=== PATIENT | male | born 1970 | race Caucasian/White ===

== ENCOUNTER 2016-12-20 16:45 | Emergency (ER) | payer OTHER ==
[2016-12-20 17:00] VITALS: BP 122/86; PULSE 89; RESP 16; TEMP 99.1; O2SAT 95
--- NOTE | 2016-12-20 17:24 | UCPHY ---
H & P Patient Type: Established Chief Complaint Nursing Narrative: ST x 2-3 days ago,cough-3-4 days dry congested cough. Fever last noc 100.5 Time Seen by Provider: 12/20/16 17:17 HPI/ROS: CHIEF COMPLAINT: Cough, sore throat HISTORY OF PRESENT ILLNESS: Patient is a 46-year-old man who comes to the Urgent Care requesting treatment for bronchitis. His cough is nonproductive. He states that he has had bronchitis or pneumonia every year since moving to [place]. This started 3 days ago. He has had low-grade fevers. He complains of mild restricted breathing. He has used a home albuterol inhaler with significant improvement. He did have some sinus congestion initially but it is now resolved. Also had a sore throat yesterday but it is now resolved. REVIEW OF SYSTEMS: Constitutional: denies: chills, fever, recent illness, recent injury EENTM: See HPI Respiratory: denies: cough, shortness of breath Cardiac: denies: chest pain, irregular heart rate, lightheadedness, palpitations Gastrointestinal/Abdominal: denies: abdominal pain, diarrhea, nausea, vomiting, blood streaked stools Genitourinary: denies: dysuria, frequency, hematuria, pain Musculoskeletal: denies: joint pain, muscle pain Skin: denies: lesions, rash, jaundice, bruising Neurological: denies: headache, numbness, paresthesia, tingling, dizziness, weakness Hematologic/Lymphatic: denies: blood clots, easy bleeding, easy bruising Immunologic/allergic: denies: HIV/AIDS, transplant EXAM: GENERAL: Well-appearing, well-nourished and in no acute distress. HEAD: Atraumatic, normocephalic. EYES: Pupils equal round and reactive to light, extraocular movements intact, sclera anicteric, conjunctiva are normal. ENT: TMs normal, nares Congested, oropharynx clear without exudates. Moist mucous membranes. NECK: Normal range of motion, supple without lymphadenopathy or JVD. LUNGS: Breath sounds clear to auscultation bilaterally and equal. No wheezes rales or rhonchi. HEART: Regular rate and rhythm without murmurs, rubs or gallops. ABDOMEN: Soft, nontender, normoactive bowel sounds. No guarding, no rebound. No masses appreciated. BACK: No CVA tenderness, no spinal tenderness, step-offs or deformities EXTREMITIES: Normal range of motion, no pitting or edema. No clubbing or cyanosis. NEUROLOGICAL: Cranial nerves II through XII grossly intact. Normal speech, normal gait. 5/5 strength, normal movement in all extremities, normal sensation PSYCH: Normal mood, normal affect. SKIN: Warm, dry, normal turgor, no visible rashes or lesions. Source: Patient Exam Limitations: No limitations - Personal History Tetanus Vaccine Date: 2010 - Medical/Surgical History Hx Asthma: No Hx Chronic Respiratory Disease: No Hx Diabetes: No Hx Cardiac Disease: No Hx Renal Disease: No Hx Cirrhosis: No Hx Alcoholism: No Hx HIV/AIDS: No Hx Splenectomy or Spleen Trauma: No Other PMH: RIGHT SHOULDER SURG. Med hx-Htn - Family History Significant Family History: No pertinent family hx - Social History Smoking Status: Never smoked Alcohol Use: Sober Drug Use: None Constitutional: Initial Vital Signs Temperature (C) 37.3 C 12/20/16 16:56 Heart Rate 89 12/20/16 16:56 Respiratory Rate 16 12/20/16 16:56 Blood Pressure 122/86 H 12/20/16 16:56 O2 Sat (%) 95 12/20/16 16:56 O2 Delivery Mode Room Air Allergies/Adverse Reactions: No Known Allergies Allergy (Verified 12/20/16 16:54) Home Medications: Medication Instructions Recorded Albuterol [Proventil Neb] 2.5 mg IH Q4 PRN #20 deyvial 09/04/14 Flonase Nasal [place] 04/17/16 AZITHROMYCIN [Z-PACK] 250 mg PO DAILY #6 tab 12/20/16 Albuterol [Proventil Neb] 3 ml IH QID PRN #0 deyvial 12/20/16 Hydrochlorothiazide 12/20/16 Medical Decision Making ED Course/Re-evaluation: Patient has symptoms consistent with bronchitis. He is requesting azithromycin. Treat him with a course. He is happy with this plan declines further workup or testing. His breath sounds are clear on exam his oxygen saturation is 96% on room air. Differential Diagnosis: Partial list of the Differential diagnosis considered include but were not limited to; bronchitis, pneumonia, pharyngitis, upper respiratory tract infection and although unlikely based on the history and physical exam, I also considered sepsis, abscess. I discussed these differential diagnoses and the plan with the patient as well as the usual and expected course. The patient understands that the diagnosis is provisional and that in medicine we are not always correct and that further workup is often warranted. Usual and customary warnings were given. All of the patient's questions were answered. The patient was instructed to return to the emergency department should the symptoms at all worsen or return, otherwise to followup with the physician as we discussed. Departure - Departure Disposition: Home, Routine, Self-Care Clinical Impression: Bronchitis Condition: Fair Instructions: Acute Bronchitis (ED) Referrals: Doc Gonzalez MD [Primary Care Provider] - As per Instructions Prescriptions: Albuterol [Proventil Neb] 3 ml IH QID PRN #0 deyvial PRN Reason: Wheezing AZITHROMYCIN [Z-PACK] 250 mg PO DAILY #6 tab - PQRS PQRS Measurement: Not applicable
== END 2016-12-20 17:52 | disposition home or self-care (01) ==
LOC: CED 16:45
DX: J20.9 Acute bronchitis, unspecified (principal)
CPT/HCPCS: G0463-PO

== ENCOUNTER → 2016-12-25 | Outpatient (CLI) | payer OTHER | LOC: CIMAGING 11:50 | PROVIDERS: ATTEND Family Medicine | DX: J40 Bronchitis, not specified as acute or chronic (principal) | CPT/HCPCS: 71020-PO ==

== ENCOUNTER → 2017-08-12 | Outpatient (CLI) | payer BC | LOC: CIMAGING 14:57 | PROVIDERS: ATTEND Family Medicine | DX: J40 Bronchitis, not specified as acute or chronic (principal); M47.814 Spondylosis without myelopathy or radiculopathy, thoracic region | CPT/HCPCS: 71020-PO ==

== ENCOUNTER → 2017-08-27 | Outpatient (CLI) | payer BC ==
[~2017-08-27] MED LIST: IOPAMIDOL (ISOVUE 370) 100 ML BTL IV ONE
== END ==
LOC: FIMAGING 13:01
PROVIDERS: ATTEND Family Medicine
DX: R06.02 Shortness of breath (principal); R91.8 Other nonspecific abnormal finding of lung field; I25.10 Atherosclerotic heart disease of native coronary artery without angina pectoris; K76.0 Fatty (change of) liver, not elsewhere classified
CPT/HCPCS: Q9967

== ENCOUNTER → 2017-12-03 | Outpatient (CLI) | payer BC | LOC: SBRMNEURO 20:00 | PROVIDERS: ATTEND Psychiatry & Neurology Sleep Medicine | DX: G47.39 Other sleep apnea (principal) ==

== ENCOUNTER → 2018-01-09 | Outpatient (CLI) | payer BC | LOC: FCPNEURO 21:30 | PROVIDERS: ATTEND Psychiatry & Neurology Sleep Medicine | DX: G47.39 Other sleep apnea (principal) ==